=== PATIENT | female | born 1995 | race Caucasian/White ===

== ENCOUNTER → 2016-05-30 | Outpatient (CLI) | payer BC ==
[2016-05-30 18:03] LABS: CH 29.3; CHCM 33.1; HCT 38.5 % (34.0-46.0); HGB 12.7 gm/dL (11.4-16.0); MCH 29.3 pg (25.0-35.0); MCHC 33.1 g/dL (31.0-37.0); MCV 88.6 fL (80.0-100.0); Mean Platelet Volume 6.4; RBC 4.34 m/uL (3.80-5.40); WBC 6.5 k/uL (3.8-10.6)
== END | disposition home or self-care (01) ==
LOC: LABWHC1 17:01
PROVIDERS: ATTEND Obstetrics & Gynecology
DX: O20.9 Hemorrhage in early pregnancy, unspecified (principal); Z3A.00 Weeks of gestation of pregnancy not specified
CPT/HCPCS: 36415; 84702; 85027; 86850; 86900; 86901

== ENCOUNTER → 2016-07-11 | Outpatient (CLI) | payer BC ==
[2016-07-12 07:10] LABS: Cardiolipin Ab IgG <9.0 GPL (<15); Cardiolipin Ab IgM 21.7 MPL (<12.5)
[2016-07-12 15:20] LABS: Prothrombin 20210 G/A Mutation Normal Genotype
== END | disposition home or self-care (01) ==
LOC: LABWHC1 10:00
PROVIDERS: ATTEND Obstetrics & Gynecology
DX: N96 Recurrent pregnancy loss (principal)
CPT/HCPCS: 36415; 81240; 81241; 81291; 84144; 84439; 84443; 86147

== ENCOUNTER → 2017-01-07 | Outpatient (CLI) | payer BC ==
[2017-01-07 11:18] LABS: CH 30.1; CHCM 34.1; HDW 2.24; HGB 13.9 gm/dL (11.4-16.0); MCH 29.2 pg (25.0-35.0); MCV 88.5 fL (80.0-100.0); Mean Platelet Volume 7.4; RBC 4.75 m/uL (3.80-5.40); RDW 13.1 % (11.5-15.5); WBC 12.7 k/uL (3.8-10.6)
[2017-01-07 11:31] LABS: Glucose 79 mg/dL (74-99); Non-African American GFR(MDRD) >60 (>60 ml/min/1.73 sqM)
[2017-01-07 12:04] LABS: Hepatitis B Surface Ag Index 0.07
[2017-01-07 15:44] LABS: Treponemal Ab Non-Reactive (Non-Reactive)
== END | disposition home or self-care (01) ==
LOC: LABWHC1 10:58
PROVIDERS: ATTEND Obstetrics & Gynecology
DX: Z34.81 Encounter for supervision of other normal pregnancy, first trimester (principal); R53.83 Other fatigue
CPT/HCPCS: 36415; 82565; 82947; 84702; 85027; 86762; 86780; 86850; 86900; 86901; 87340; 87390

== ENCOUNTER → 2017-05-12 | Outpatient (CLI) | payer BC ==
[2017-05-12 10:05] LABS: CH 29.4; CHCM 32.6; HCT 32.6 % (34.0-46.0); HDW 2.59; HGB 10.7 gm/dL (11.4-16.0); MCH 29.9 pg (25.0-35.0); MCHC 32.9 g/dL (31.0-37.0); MCV 90.9 fL (80.0-100.0); Mean Platelet Volume 7.1; RBC 3.59 m/uL (3.80-5.40); RDW 13.5 % (11.5-15.5); WBC 11.3 k/uL (3.8-10.6)
== END | disposition home or self-care (01) ==
LOC: LABWHC1 08:46
PROVIDERS: ATTEND Obstetrics & Gynecology
DX: Z34.82 Encounter for supervision of other normal pregnancy, second trimester (principal); Z3A.00 Weeks of gestation of pregnancy not specified
CPT/HCPCS: 36415; 82950; 85027

== ENCOUNTER 2019-05-27 18:56 | Outpatient (CLI) | payer BC ==
[2019-05-27] MEDS: LACTATED RINGERS 1,000 ML IV SCH ×2 (20:29→20:50)
[2019-05-27 20:53] LABS: Appearance,Urine Clear (Clear); Bacteria,Urine Occasional /hpf; Bilirubin,Urine Negative (Negative); Blood,Urine Negative (Negative); Color,Urine Yellow; Glucose,Urine (UA) Negative (Negative); Ketones,Urine 4+ (Negative); Leukocyte Esterase,Urine Negative (Negative); Mucus,Urine Rare /hpf; Nitrite,Urine Negative (Negative); Protein,Urine 1+ (Negative); RBC,Urine <1 /hpf (0-5); Specific Gravity,Urine 1.022 (1.001-1.035); Squamous Epithelial Cell,Urine 1 /hpf (0-4); Urobilinogen,Urine <2.0 mg/dL (<2.0); WBC,Urine 1 /hpf (0-5)
[2019-05-27 23:01] VITALS: BP 116/67; PULSE 120; RESP 18; TEMP 98.6
[2019-05-28] MEDS ORDERED: PRENATAL VIT-IRON-FOLIC ACID 1 EACH CAP PO SCH (09:00)
--- NOTE | 2019-06-02 08:34 | P.MSEPDOC ---
Presenting Problems - Arrival Data Date of Arrival on Unit: 05/27/19 Time of Arrival on Unit: 18:56 Mode of Transport: Ambulatory - Complaint OB-Reason for Admission/Chief Complaint: Other Medical History - Information : 4 Para: 1 Term: 1 : 0 Abortions: Spontaneous or Elective: 2 Number of Living Children: 1 - Gestational Age Gestational Age by SURI (wks/days): 34 Weeks and 3 Days Review of Systems - Review of Systems Constitutional: No problems Breast: No problems ENT: No problems Cardiovascular: No problems Respiratory: No problems Gastrointestinal: No problems Genitourinary: No problems Musculoskeletal: No problems Neurological: No problems Skin: No problems Vital Signs - Temperature Temperature: 98.6 F Temperature Source: Temporal Artery Scan - Pulse Right Supine Pulse Rate: 120 Pulse Assessment Method: Automatic Cuff - Respirations Respiratory Rate: 18 Oxygen Delivery Method: Room Air O2 Sat by Pulse Oximetry: 98 - Blood Pressure Right Arm Blood Pressure: 116/67 Blood Pressure Mean: 83 Blood Pressure Source: Automatic Cuff Medical Screen Scoring (Pre) - Cervical Exam Dilation: 0 cm = 0 Membranes: Intact - Uterine Contractions Frequency: < 36 weeks = 6 Duration: > 40 seconds = 2 Intensity: N/A - Maternal Vital Signs Maternal Temperature: N/A Maternal Blood Pressure: N/A Signs of Preeclampsia: N/A Maternal Respirations: N/A - Maternal Trauma Maternal Trauma: N/A - Assessment - Baby A Baseline FHR: 150 Heart Rate - NICHD Category: Category I (Normal) = 0 NST: Reactive Position: N/A Station: N/A - Total Score - Baby A Total Score - Baby A: 8 - Total Score - Baby B Total Score - Baby B: 8 - Total Score - Baby C Total Score - Baby C: 8 - Level of Risk - Baby A Level of Risk - Baby A: Medium (6-9) - Level of Risk - Baby B Level of Risk - Baby B: N/A - Level of Risk - Baby C Level of Risk - Baby C: N/A Physician Notification (Pre) - Physician Notified Physician Notified Date: 05/27/19 Physician Notified Time: 20:30 New Order Received: Yes - Notification Comment Comment: Pt to be discharged and see Dr Kenny on Friday, if no cervical change, negative FfN and contractions space with IV hydration. Disposition - Disposition OB Disposition: Discharge to home Discharge Date: 05/27/19 Discharge Time: 22:45 I agree with the RN Medical Screening Exam: Yes Risk & Benefit of care provided described in d/c instruction: Yes Diagnosis: VOMITING OF , UNSPECIFIED
== END 2019-05-27 22:45 | disposition home or self-care (01) ==
LOC: FBPOP 18:56
PROVIDERS: ATTEND Obstetrics & Gynecology
DX: O21.2 Late vomiting of pregnancy (principal); Z3A.34 34 weeks gestation of pregnancy
CPT/HCPCS: 59025; 81001; 82731; 96360; 96361; 99214

== ENCOUNTER 2019-06-29 05:42 | Inpatient (IN) | payer BC ==
[2019-06-29] MEDS ORDERED: LIDOCAINE 0.5% (PF) 5 MG/ML (50 ML SDV) SQ PRN (05:51)
[2019-06-29] MEDS ORDERED: OXYTOCIN 10 UNIT/ML 1 ML VIAL IM PRN (05:51)
[2019-06-29] MEDS ORDERED: OXYTOCIN 30 UNITS/500 ML NS 30 UNIT in SALINE 1 500ML.BAG IV SCH (05:51)
[2019-06-29] MEDS ORDERED: CARBOPROST TROMETHAMINE 250 MCG/ML 1 ML AMP IM PRN (05:51)
[2019-06-29] MEDS ORDERED: METHYLERGONOVINE 0.2 MG/ML 1 ML AMP IM PRN (05:51)
[2019-06-29] MEDS ORDERED: TERBUTALINE 1 MG/ML VIAL SQ PRN (05:51)
[2019-06-29] MEDS: LACTATED RINGERS 1,000 ML IV SCH ×2 (06:12→09:23)
--- NOTE | 2019-06-29 06:16 | P.HPOB ---
History of Present Illness H&P Date: 06/29/19 Chief Complaint: Induction secondary to antiphospholipid syndrome This patient is a pleasant 24-year-old 4 para 1 female estimated date of confinement 07/05/2019 estimated gestational age 39 and one sevenths weeks gestation who is admitted to labor and delivery for induction of labor secondary to antiphospholipid syndrome. Patient has been on Lovenox and baby aspirin throughout the secondary to this condition and has had normal testing. Patient now presents for delivery. care has otherwise been uncomplicated. Review of Systems Genitourinary: Reports Menstruation: Reports amenorrhea Past Medical History Additional Past Medical History / Comment(s): Antiphospolipid syndrone; normal vaginal delivery baby boy in 2018 7 lbs. 10 oz. History of Any Multi-Drug Resistant Organisms: None Reported Past Surgical History: No Surgical Hx Reported Past Anesthesia/Blood Transfusion Reactions: No Reported Reaction Past Psychological History: No Psychological Hx Reported Smoking Status: Never smoker Past Alcohol Use History: None Reported Past Drug Use History: None Reported - Past Family History Mother Family Medical History: No Reported History Medications and Allergies Home Medications Medication Instructions Recorded Confirmed Type Pnv,Calcium 72/Iron/Folic Acid 1 tab PO DAILY 03/26/16 06/29/19 History [ Plus Tablet] Allergies Allergy/AdvReac Type Severity Reaction Status Date / Time No Known Allergies Allergy Verified 06/29/19 05:51 Exam Vital Signs Temp Pulse Resp BP Pulse Ox 06/29/19 05:53 97.8 F 91 18 131/73 98 Intake and Output 06/28/19 06/28/19 06/29/19 14:59 22:59 06:59 Other: Weight 68.039 kg - OBG Physical Exam Abdomen: bowel sounds normal, no diffuse tenderness, no bruit present, no guarding noted, no hepatomegaly, no splenomegaly, no mass Vulva: both: normal Vagina: normal moisture, no discharge Cervix: no lesion (Cervix is 4 cm dilated 50% effaced -2 station.), no discharge Uterus: enlarged (Fundal heights 39 cm) Results blood work shows she is O positive, rubella immune, RPR nonreactive, hepatitis B negative, HIV is nonreactive, Glucola was normal, group B strep was negative, growth ultrasounds have been normal. Most recent ultrasound was on May 31 which showed estimated weight of 5 lbs. 14 oz. Assessment and Plan Assessment: This is a pleasant 24-year-old 4 para 1 female 39 and one sevenths weeks gestation admitted to labor and delivery who presents for delivery secondary to antiphospholipid syndrome. Patient's been on Lovenox and baby aspirin which she discontinued 48 hours ago so therefore we'll check coags. Plan is induction of labor and anticipate vaginal delivery. (1) 39 weeks gestation of Current Visit: Yes Status: Acute Code(s): Z3A.39 - 39 WEEKS GESTATION OF SNOMED Code(s): 61025452 (2) Antiphospholipid antibody syndrome Current Visit: No Status: Acute Code(s): D68.61 - ANTIPHOSPHOLIPID SYNDROME SNOMED Code(s): 40167081
[2019-06-29 06:31] LABS: Basophils # (A) 0.1 k/uL (0-0.2); Basophils % (A) 1 %; Eosinophils # (A) 0.1 k/uL (0-0.7); Eosinophils % (A) 1 %; HCT 35.2 % (34.0-46.0); HGB 11.5 gm/dL (11.4-16.0); Lymphocytes # (A) 1.3 k/uL (1.0-4.8); Lymphocytes % (A) 12 %; MCH 28.5 pg (25.0-35.0); MCHC 32.7 g/dL (31.0-37.0); Mean Platelet Volume 8.1; Monocytes # (A) 0.5 k/uL (0-1.0); Monocytes % (A) 5 %; Neutrophils # (A) 8.8 k/uL (1.3-7.7); Neutrophils % (A) 81 %; Platelet Count 205 k/uL (150-450); RBC 4.05 m/uL (3.80-5.40); RDW 13.9 % (11.5-15.5); WBC 10.9 k/uL (3.8-10.6)
[2019-06-29 06:45] LABS: INR 0.9 (<1.2); Partial Thromboplastin Time 22.7 sec (22.0-30.0); Prothrombin Time 9.5 sec (9.0-12.0)
[2019-06-29] MEDS ORDERED: fentaNYL (PF) 50 MCG/ML 5 ML AMP ONE (09:03)
[2019-06-29] MEDS ORDERED: SODIUM CHLORIDE 0.9% 100 ML BAG ONE (09:03)
[2019-06-29] MEDS ORDERED: ROPIVACAINE 5MG/ML 20ML VIAL ONE (09:03)
[2019-06-29] MEDS ORDERED: WITCH HAZEL 1 EACH MED..PAD TOPICAL PRN (12:08)
[2019-06-29] MEDS ORDERED: ACETAMINOPHEN TAB 325 MG TAB PO PRN (12:08)
[2019-06-29] MEDS ORDERED: ZOLPIDEM 5 MG TAB PO PRN (12:08)
[2019-06-29] MEDS ORDERED: OXYTOCIN 20 UNITS/1000 ML NS 1,000 ML IV SCH (12:08)
[2019-06-29] MEDS ORDERED: LANOLIN CREAM 5 GM TUBE TOPICAL PRN (12:08)
[2019-06-29] MEDS ORDERED: BENZOCAINE/MENTHOL SPRAY 1 GM/SPRAY AEROSOL TOPICAL PRN (12:08)
[2019-06-29] MEDS ORDERED: BISACODYL 10 MG SUPP RECTAL PRN (12:08)
[2019-06-29] MEDS ORDERED: diphenhydrAMINE 25 MG CAP PO PRN (12:08)
[2019-06-29] MEDS ORDERED: SIMETHICONE 80 MG CHEWABLE PO PRN (12:08)
[2019-06-29] MEDS ORDERED: HYDROCORTISONE 2.5% RECTAL CREAM 30 GM TUBE RECTAL PRN (12:08)
[2019-06-29] MEDS ORDERED: diphenhydrAMINE 50 MG/ML 1 ML VIAL IVP PRN (12:08)
[2019-06-29] MEDS: SENNOSIDES-DOCUSATE SODIUM 1 EACH TAB PO SCH ×2 (12:18→19:46)
[2019-06-29] MEDS: IBUPROFEN 600 MG TAB PO PRN ×2 (12:23→18:39)
--- NOTE | 2019-06-29 18:03 | P.PROBDLV ---
Vaginal Delivery Note - . Vaginal Delivery Note: Normal vaginal delivery viable male infant Apgars 8 and 9 delivery time was 1152 hrs. Please see the dictated H&P for intimate details of this patient's admission. Brief summary this is a pleasant 24-year-old 4 para 1 female 39 and one sevenths weeks gestation is admitted to labor and delivery for induction of labor secondary to antiphospholipid syndrome. Admission patient's 4 cm dilated has artificial rupture membranes for clear fluid. Labor is induced with Pitocin per protocol. Patient's labor progresses and she does get an epidural for pain control. Patient gets to complete pushes the head to the perineum. Posterior perineum was supported we have controlled delivery of infant's head over the intact perineum. Mouth and nares are bulb suctioned. There is a loose nuchal cord which is reduced. Gentle downward traction we then deliver the anterior posterior shoulder and rest this 's body. This is a vigorous viable male infant Apgars are 8 and 9 delivery time was 1152 hrs. After delivery of the infant is late the mother's abdomen. The cord was done pulsating is then doubly clamped and cut. It appears to be trivascular. Placenta spontaneously delivered intact. Inspection of perineum shows second- degree midline laceration is repaired with 3-0 Vicryl usual fashion. Good reapproximation is noted. All counts are correct 3. There are no complications. Estimated blood loss is approximately 200 mL.
[2019-06-29 23:43] VITALS: RESP 15
[2019-06-30] MEDS: IBUPROFEN 600 MG TAB PO PRN ×2 (05:09→10:54)
--- NOTE | 2019-06-30 06:34 | P.PNOBGVD ---
Subjective - Subjective Patient reports: Reports appetite normal, Reports voiding normally, Reports pain well controlled, Reports ambulating normally : doing well Objective - Latest Vital Signs Latest vital signs: Vital Signs Temp Pulse Resp BP Pulse Ox 06/29/19 23:41 98.3 F 86 15 118/68 98 06/29/19 20:00 98.5 F 92 16 116/71 98 06/29/19 15:47 99 F 90 16 132/65 06/29/19 14:10 92 16 120/70 06/29/19 13:40 92 16 120/70 06/29/19 13:10 98 16 122/67 06/29/19 12:55 102 H 16 112/67 06/29/19 12:40 96 16 123/68 06/29/19 12:25 100 16 124/62 06/29/19 12:10 37.2 F L 111 H 16 124/76 Intake and Output 06/29/19 06/29/19 06/30/19 14:59 22:59 06:59 Other: # Voids 1 2 - Exam Lungs: bilateral: normal Chest: Normal S1, Normal S2 Extremities: Present: normal Abdomen: Present: normal appearance, soft Uterus: Present: normal, firm Assessment and Plan Assessment: day #1. Patient is resting without complaints wishes to go home. Vital signs are stable and she is afebrile. Uterus is firm nontender she's having normal lochia. My impression is a normal course. Plan is to continue routine care discharge home later today. (1) 39 weeks gestation of Current Visit: Yes Status: Acute Code(s): Z3A.39 - 39 WEEKS GESTATION OF SNOMED Code(s): 21711366 (2) Antiphospholipid antibody syndrome Current Visit: No Status: Acute Code(s): D68.61 - ANTIPHOSPHOLIPID SYNDROME SNOMED Code(s): 41001344
--- NOTE | 2019-06-30 06:39 | P.DS ---
Providers Date of admission: 06/29/19 05:42 Expected date of discharge: 06/30/19 Attending physician: Will Kenny Primary care physician: Stated None - Discharge Diagnosis(es) (1) 39 weeks gestation of Current Visit: Yes Status: Acute (2) Antiphospholipid antibody syndrome Current Visit: No Status: Acute Hospital Course: Please see dictated H&P for intimate details of this patient's admission. Brief summary this pleasant 24-year-old 4 para 1 female 39 and one sevenths weeks gestation admitted to labor and delivery for induction of labor secondary to known antiphospholipid syndrome. Patient is admitted and quickly goes on have a vaginal delivery viable male infant. Please see dictated delivery note. day #1 patient is doing well wishes to go home. Patient's felt be stable for discharge home with follow-up with me in 6 weeks. I am going to have her continue baby aspirin until that time. Procedures: Induction of labor and normal vaginal delivery Patient Condition at Discharge: Good Plan - Discharge Summary New Discharge Prescriptions: New Ibuprofen [Motrin] 600 mg PO Q6HR PRN #30 tab PRN Reason: Mild Pain Or Fever >= 100.5 No Action Pnv,Calcium 72/Iron/Folic Acid [ Plus Tablet] 1 tab PO DAILY Discharge Medication List Pnv,Calcium 72/Iron/Folic Acid [ Plus Tablet] 1 tab PO DAILY 03/26/16 [History] Ibuprofen [Motrin] 600 mg PO Q6HR PRN #30 tab 06/30/19 [Rx] Follow up Appointment(s)/Referral(s): Will Kenny MD [STAFF PHYSICIAN] - 08/11/19 10:30 am Patient Instructions/Handouts: Vaginal Delivery (DC) Activity/Diet/Wound Care/Special Instructions: No intercourse or anything per vagina for 6 weeks. Please call if any fever, chills, excessive vaginal bleeding, and/or abdominal pain. Discharge Disposition: HOME SELF-CARE
[2019-06-30 08:12] VITALS: BP 122/68; PULSE 98; TEMP 98.4
[2019-06-30] MEDS: SENNOSIDES-DOCUSATE SODIUM 1 EACH TAB PO SCH (08:52)
== END 2019-06-30 12:31 | disposition home or self-care (01) | DRG 806 ==
LOC: 4FBP 05:42
PROVIDERS: ADMIT Obstetrics & Gynecology; ATTEND Obstetrics & Gynecology
PROC: 0KQM0ZZ Repair Perineum Muscle, Open Approach (ICD-10-PCS; principal; 2019-06-29)
PROC: 10E0XZZ Delivery of Products of Conception, External Approach (ICD-10-PCS; principal; 2019-06-29)
PROC: 3E0R3NZ Introduction of Analgesics, Hypnotics, Sedatives into Spinal Canal, Percutaneous Approach (ICD-10-PCS; principal; 2019-06-29)
PROC: 10907ZC Drainage of Amniotic Fluid, Therapeutic from Products of Conception, Via Natural or Artificial Opening (ICD-10-PCS; principal; 2019-06-29)
PROC: 00HU33Z Insertion of Infusion Device into Spinal Canal, Percutaneous Approach (ICD-10-PCS; principal; 2019-06-29)
PROC: 3E033VJ Introduction of Other Hormone into Peripheral Vein, Percutaneous Approach (ICD-10-PCS; principal; 2019-06-29)
DX: O99.12 Other diseases of the blood and blood-forming organs and certain disorders involving the immune mechanism complicating childbirth (principal); D68.61 Antiphospholipid syndrome; Z37.0 Single live birth; O69.81X0 Labor and delivery complicated by cord around neck, without compression, not applicable or unspecified; Z3A.39 39 weeks gestation of pregnancy; O70.1 Second degree perineal laceration during delivery; Z79.01 Long term (current) use of anticoagulants
CPT/HCPCS: 85025; 85610; 85730; 86850; 86900; 86901; 88307

== ENCOUNTER 2022-02-17 00:04 | Outpatient (CLI) | payer BC ==
[2022-02-17 01:22] VITALS: BP 129/76; PULSE 102; RESP 16; TEMP 97
--- NOTE | 2022-02-17 04:56 | P.MSEPDOC ---
Presenting Problems - Arrival Data Date of Arrival on Unit: 02/17/22 Time of Arrival on Unit: 00:04 Mode of Transport: Ambulatory - Complaint OB-Reason for Admission/Chief Complaint: Possible Onset of Labor Comment: cx 3mins apart Medical History - Information : 5 Para: 2 Term: 2 : 0 Abortions: Spontaneous or Elective: 2 Number of Living Children: 2 - Gestational Age Gestational Age by SURI (wks/days): 36 Weeks and 3 Days - History Complications: Other Comment: Antiphospholipid Syndrome Review of Systems - Review of Systems Constitutional: No problems Breast: No problems ENT: No problems Cardiovascular: No problems Respiratory: No problems Gastrointestinal: No problems Genitourinary: No problems Musculoskeletal: No problems Neurological: No problems Skin: No problems Vital Signs - Temperature Temperature: 97.0 F Temperature Source: Temporal Artery Scan - Pulse Pulse Oximetery Pulse Rate: 102 Pulse Assessment Method: Pulse Oximetry - Respirations Respiratory Rate: 16 Oxygen Delivery Method: Room Air O2 Sat by Pulse Oximetry: 98 - Blood Pressure Right Arm Blood Pressure: 129/76 Blood Pressure Mean: 93 Blood Pressure Source: Automatic Cuff Medical Screen Scoring - Cervical Exam Dilation (cm): 1.5 Effacement (%): 50 Station: -3 Membranes: Intact - Uterine Contractions Frequency From (mins): 3 Frequency To (mins): 4 Duration From (seconds): 60 Duration To (seconds): 70 Intensity: Mild Resting: Soft to palpation - Assessment - Baby A Baseline FHR: 120 Heart Rate - NICHD Category: Category I (Normal) NST: Reactive Physician Notification - Physician Notified Physician Notified Date: 02/17/22 Physician Notified Time: 01:13 Physician: Will Kenny New Order Received: Yes - Notification Comment Comment: Dr. Kenny returning page, report given on maternal and condition, c/o. contractions since 8pm, pt does not appear uncomfortable with them but is irena. every 3-4mins, NST is reactive and fetus is very active, SVE 1.5/50/high (no change in 1. hr). Orders to discharge home Maternal Triage Index - Maternal Triage Index Presenting for scheduled procedure w/no complaint: No - Stat/Priority 1 Stat Priority 1: No - Urgent/Priority 2 Urgent Priority 2: No - Prompt/Priority 3 Prompt Priority 3: Yes Criteria Met for Priority 3: 36 6/7wks, cx every 3mins, does not appear uncomfortable Disposition - Disposition OB Disposition: Discharge to home Discharge Date: 02/17/22 Discharge Time: 01:20 I agree with the RN Medical Screening Exam: Yes Case reviewed; plan agreed upon as documented in EMR&OBIX.: Yes Diagnosis: FALSE LABOR BEFORE 37 COMPLETED WEEKS OF GEST, THIRD TRI
== END 2022-02-17 01:20 | disposition home or self-care (01) ==
LOC: FBPOP 00:04
PROVIDERS: ATTEND Obstetrics & Gynecology
DX: O47.03 False labor before 37 completed weeks of gestation, third trimester (principal); Z3A.36 36 weeks gestation of pregnancy
CPT/HCPCS: 59025; 99213

== ENCOUNTER 2022-03-08 05:56 | Inpatient (IN) | payer BC ==
--- NOTE | 2022-03-07 06:53 | P.HPOB ---
History of Present Illness H&P Date: 03/07/22 Chief Complaint: antiphospholipid syndrome, for induction of labor This patient is a pleasant 27-year-old 5 para 2 female estimated date of confinement 03/14/2002 estimated gestational age 39 and one sevenths weeks who presents to labor and delivery for induction of labor secondary to antiphospholipid syndrome. Patient's history is such that she had multiple miscarriages was found to have antiphospholipid syndrome. She subsequently been on Lovenox and heparin for her subsequent 2 pregnancies and has been on at this as well. Patient's had normal testing and growth. She did see maternal medicine for a questionable circumvallate placenta which she did not have. Patient most recently stopped her heparin about 48 hours ago now presents for delivery. care is otherwise been uncomplicated. Review of Systems Genitourinary: Reports Menstruation: Reports amenorrhea Past Medical History Past Medical History: No Reported History Additional Past Medical History / Comment(s): .Antiphospolipid syndrone; normal vaginal delivery History of Any Multi-Drug Resistant Organisms: None Reported Past Surgical History: No Surgical Hx Reported Past Anesthesia/Blood Transfusion Reactions: No Reported Reaction Additional Past Anesthesia/Blood Transfusion Reaction / Comment(s): hands numb for 6 weeks after 1st epidural (unknown cause) Past Psychological History: No Psychological Hx Reported Past Alcohol Use History: None Reported Past Drug Use History: None Reported - Past Family History Mother Family Medical History: No Reported History Medications and Allergies Home Medications Medication Instructions Recorded Confirmed Type Pnv,Calcium 72/Iron/Folic Acid 1 tab PO DAILY 03/26/16 02/17/22 History [ Plus Tablet] Aspirin [Adult Low Dose Aspirin EC] 1 tab PO DAILY 02/17/22 03/07/22 History Allergies Allergy/AdvReac Type Severity Reaction Status Date / Time No Known Allergies Allergy Verified 06/29/19 05:51 Exam - OBG Physical Exam Abdomen: bowel sounds normal, no diffuse tenderness, no bruit present, no guarding noted, no hepatomegaly, no splenomegaly, no mass Vulva: both: normal Vagina: normal moisture, no discharge Uterus: normal size (cervix in the office was 3 cm dilated and thick and -2 station.), normal contour Results blood work shows she is O positive, rubella immune, RPR nonreactive, HIV is nonreactive, hepatitis B is negative, group B strep was negative, Glucola was normal, most recent ultrasound showed normal growth. Assessment and Plan Assessment: this is a pleasant 27-year-old 5 para 2 female 39 and one sevenths weeks gestation who is admitted to labor and delivery for induction of labor secondary to antiphospholipid syndrome. Plan is to check coagulation factors, induction of labor per Pitocin protocol, and anticipate vaginal delivery. (1) 39 weeks gestation of Status: Acute Code(s): Z3A.39 - 39 WEEKS GESTATION OF SNOMED Code(s): 77147249 (2) Antiphospholipid antibody syndrome Status: Acute Code(s): D68.61 - ANTIPHOSPHOLIPID SYNDROME SNOMED Code(s): 65025246
[2022-03-08] MEDS ORDERED: CARBOPROST TROMETHAMINE 250 MCG/ML 1 ML AMP IM PRN (06:02)
[2022-03-08] MEDS ORDERED: OXYTOCIN 30 UNITS/500 ML NS 30 UNIT in SALINE 1 500ML.BAG IV SCH ×2 (06:02→11:38)
[2022-03-08] MEDS ORDERED: METHYLERGONOVINE 0.2 MG/ML 1 ML AMP IM PRN (06:02)
[2022-03-08] MEDS ORDERED: TERBUTALINE 1 MG/ML VIAL SQ PRN (06:02)
[2022-03-08] MEDS ORDERED: OXYTOCIN 10 UNIT/ML 1 ML VIAL IM PRN (06:02)
[2022-03-08] MEDS ORDERED: LIDOCAINE 0.5% (PF) 5 MG/ML (50 ML SDV) SQ PRN (06:02)
[2022-03-08] MEDS: LACTATED RINGERS 1,000 ML IV SCH ×2 (06:15→08:40)
[2022-03-08 07:26] LABS: Basophils # (A) 0.1 k/uL (0-0.2); Basophils % (A) 0 %; Eosinophils # (A) 0.2 k/uL (0-0.7); Eosinophils % (A) 1 %; HCT 35.3 % (34.0-46.0); HGB 12.2 gm/dL (11.4-16.0); Lymphocytes # (A) 1.3 k/uL (1.0-4.8); Lymphocytes % (A) 9 %; MCH 30.1 pg (25.0-35.0); MCHC 34.5 g/dL (31.0-37.0); MCV 87.2 fL (80.0-100.0); Mean Platelet Volume 8.4; Monocytes # (A) 0.9 k/uL (0-1.0); Monocytes % (A) 6 %; Neutrophils # (A) 12.1 k/uL (1.3-7.7); Neutrophils % (A) 82 %; Platelet Count 198 k/uL (150-450); RBC 4.05 m/uL (3.80-5.40); RDW 13.3 % (11.5-15.5); WBC 14.7 k/uL (3.8-10.6)
[2022-03-08 08:07] LABS: INR 0.9 (<1.2); Partial Thromboplastin Time 23.1 sec (22.0-30.0); Prothrombin Time 9.6 sec (9.0-12.0)
[2022-03-08] MEDS ORDERED: ROPIVACAINE 5 MG/ML 20 ML AMPULE ONE (08:47)
[2022-03-08] MEDS ORDERED: SODIUM CHLORIDE 0.9% 100 ML BAG ONE (08:47)
[2022-03-08] MEDS ORDERED: fentaNYL (PF) 50 MCG/ML 5 ML AMP ONE (08:47)
[2022-03-08] MEDS ORDERED: ROPIVACAINE 100 MG, fentaNYL (PF). 200 MCG in SODIUM CHLORIDE 0.9% 76 ML EPIDURAL ONE (09:43)
[2022-03-08] MEDS ORDERED: HYDROCORTISONE 2.5% RECTAL CREAM 30 GM TUBE RECTAL PRN (11:38)
[2022-03-08] MEDS ORDERED: LANOLIN CREAM 5 GM TUBE TOPICAL PRN (11:38)
[2022-03-08] MEDS ORDERED: SIMETHICONE 80 MG CHEWABLE PO PRN (11:38)
[2022-03-08] MEDS ORDERED: bisacodyL 10 MG SUPP RECTAL PRN (11:38)
[2022-03-08] MEDS ORDERED: BENZOCAINE/MENTHOL SPRAY 1 GM/SPRAY AEROSOL TOPICAL PRN (11:38)
[2022-03-08] MEDS ORDERED: ACETAMINOPHEN TAB 325 MG TAB PO PRN (11:38)
[2022-03-08] MEDS ORDERED: diphenhydrAMINE 50 MG/ML 1 ML VIAL IVP PRN (11:38)
[2022-03-08] MEDS ORDERED: ZOLPIDEM 5 MG TAB PO PRN (11:38)
[2022-03-08] MEDS ORDERED: diphenhydrAMINE 25 MG CAP PO PRN (11:38)
[2022-03-08] MEDS: SENNOSIDES-DOCUSATE SODIUM 1 EACH TAB PO SCH ×2 (11:50→20:32)
--- NOTE | 2022-03-08 12:40 | P.PROBDLV ---
Vaginal Delivery Note - . Vaginal Delivery Note: Normal vaginal delivery viable male Apgars 9 and 10 delivery time is 1125 hrs. Please see dictated H&P for intimate details of this patient's admission. In brief summary this pleasant 27-year-old 5 para 2 female estimated gestational age 39 and one sevenths weeks who presents to labor and delivery for induction of labor secondary to antiphospholipid syndrome. Patient is admitted she is 3 cm dilated. She is artificial rupture membranes for clear fluid. Labor is induced with Pitocin per protocol. Labor progresses and approximately 7 simmers dilated she gets an epidural for pain control. Patient quickly thereafter gets to complete pushes the head to the perineum. Posterior perineum is supported we have controlled delivery of the infant's head over the intact perineum. There was a loose nuchal cord which is reduced. I bulb suction the mouth and nose. With gentle downward traction we then have deliver the anterior and posterior shoulder and rest this 's body. This is a vigorous viable male infant Apgars are 9 and 10 delivery time was 1125 hrs. After delivery of the infant, the is laid on the mother's abdomen. After the umbilical cord is done pulsating is doubly clamped and then cut. It appears to be trivascular. The placenta is then spontaneously delivered intact. Inspection of perineum shows no lacerations and no repairs required. Infant and mother are stable delivery room. All counts correct 3. There are no complications.
[2022-03-08 13:16] VITALS: RESP 16
[2022-03-08] MEDS: IBUPROFEN 600 MG TAB PO PRN (14:26)
[2022-03-09] MEDS: IBUPROFEN 600 MG TAB PO PRN ×2 (00:24→08:16)
[2022-03-09 08:10] VITALS: BP 100/66; PULSE 67; TEMP 98.1
[2022-03-09] MEDS: SENNOSIDES-DOCUSATE SODIUM 1 EACH TAB PO SCH (08:15)
[2022-03-09 08:17] LABS: Basophils # (A) 0.1 k/uL (0-0.2); Basophils % (A) 0 %; Eosinophils # (A) 0.2 k/uL (0-0.7); Eosinophils % (A) 2 %; HCT 32.2 % (34.0-46.0); HGB 10.9 gm/dL (11.4-16.0); Lymphocytes # (A) 1.4 k/uL (1.0-4.8); Lymphocytes % (A) 12 %; MCH 30.1 pg (25.0-35.0); MCHC 33.9 g/dL (31.0-37.0); MCV 88.8 fL (80.0-100.0); Mean Platelet Volume 8.1; Monocytes # (A) 0.7 k/uL (0-1.0); Monocytes % (A) 6 %; Neutrophils # (A) 9.1 k/uL (1.3-7.7); Neutrophils % (A) 79 %; Platelet Count 175 k/uL (150-450); RBC 3.63 m/uL (3.80-5.40); RDW 13.6 % (11.5-15.5); WBC 11.5 k/uL (3.8-10.6)
--- NOTE | 2022-03-09 08:24 | P.PNOBGVD ---
Subjective - Subjective Patient reports: Reports appetite normal, Reports voiding normally, Reports pain well controlled, Reports ambulating normally [place]: doing well Objective - Latest Vital Signs Latest vital signs: Vital Signs Temp Pulse Resp BP Pulse Ox 03/09/22 08:00 98.1 F 67 16 100/66 03/09/22 00:00 97.7 F 79 16 114/74 99 03/08/22 20:00 97.9 F 82 16 118/71 98 03/08/22 15:34 98.1 F 82 16 107/65 98 03/08/22 13:40 100 16 113/63 03/08/22 13:14 97.2 F L 91 16 108/61 03/08/22 12:39 97.1 F L 97 18 113/65 03/08/22 12:24 98 18 109/62 03/08/22 12:09 90 18 114/63 03/08/22 11:54 88 16 110/61 03/08/22 11:39 97.9 F 99 16 113/63 Intake and Output 03/08/22 03/09/22 03/09/22 22:59 06:59 14:59 Other: # Voids 1 2 1 - Exam Lungs: bilateral: normal Chest: Normal S1, Normal S2 Extremities: Present: normal Abdomen: Present: normal appearance, soft Uterus: Present: normal, firm - Labs Labs: Abnormal Lab Results - Last 24 Hours (Table) 03/09/22 Range/Units 07:57 WBC 11.5 H (3.8-10.6) k/uL RBC 3.63 L (3.80-5.40) m/uL Hgb 10.9 L (11.4-16.0) gm/dL Hct 32.2 L (34.0-46.0) % Neutrophils # 9.1 H (1.3-7.7) k/uL Assessment and Plan Assessment: day #1. Patient is resting without complaints and wishes to go home. Vital signs are stable she is afebrile. Uterus is firm nontender and she is having normal lochia. I impression this is a normal course. Plan is to continue routine care discharge home later today. (1) 39 weeks gestation of Current Visit: No Status: Acute Code(s): Z3A.39 - 39 WEEKS GESTATION OF SNOMED Code(s): 23499818 (2) Antiphospholipid antibody syndrome Current Visit: No Status: Acute Code(s): D68.61 - ANTIPHOSPHOLIPID SYNDROME SNOMED Code(s): 39041400
--- NOTE | 2022-03-09 08:32 | P.DS ---
Providers Date of admission: 03/08/22 05:56 Expected date of discharge: 03/09/22 Attending physician: Will Kenny Primary care physician: Stated None - Discharge Diagnosis(es) (1) 39 weeks gestation of Current Visit: No Status: Acute (2) Antiphospholipid antibody syndrome Current Visit: No Status: Acute Hospital Course: Please see dictated H&P for intimate details of this patient's admission. Brief summary is a pleasant 27-year-old 5 para 2 female 39 and one sevenths weeks gestation admitted to labor and delivery or induction of labor secondary to antiphospholipid syndrome. Patient is admitted has uncomplicated induction of labor quickly goes on have a vaginal delivery viable male infant. Please see dictated delivery note. day #1 patient's felt to be stable for discharge home follow up with me in 6 weeks. Procedures: Induction of labor and normal vaginal delivery Patient Condition at Discharge: Good Plan - Discharge Summary New Discharge Prescriptions: New Ibuprofen [Motrin] 600 mg PO Q6HR PRN #30 tab PRN Reason: Pain No Action Pnv,Calcium 72/Iron/Folic Acid [ Plus Tablet] 1 tab PO DAILY Aspirin [Adult Low Dose Aspirin EC] 1 tab PO DAILY Heparin Sodium,Porcine [Heparin Sodium] 5,000 unit SQ Q12HR Discharge Medication List Pnv,Calcium 72/Iron/Folic Acid [ Plus Tablet] 1 tab PO DAILY 03/26/16 [History] Aspirin [Adult Low Dose Aspirin EC] 1 tab PO DAILY 02/17/22 [History] Heparin Sodium,Porcine [Heparin Sodium] 5,000 unit SQ Q12HR 03/08/22 [History] Ibuprofen [Motrin] 600 mg PO Q6HR PRN #30 tab 03/09/22 [Rx] Follow up Appointment(s)/Referral(s): Will Kenny MD [STAFF PHYSICIAN] - 04/16/22 8:45 am Patient Instructions/Handouts: Vaginal Delivery (DC) Activity/Diet/Wound Care/Special Instructions: No intercourse or anything per vagina for 6 weeks. Please call if any fever, chills, excessive vaginal bleeding, and/or abdominal pain. Discharge Disposition: HOME SELF-CARE
== END 2022-03-09 12:30 | disposition home or self-care (01) | DRG 806 ==
LOC: 4FBP 05:56
PROVIDERS: ADMIT Obstetrics & Gynecology; ATTEND Obstetrics & Gynecology
PROC: 10E0XZZ Delivery of Products of Conception, External Approach (ICD-10-PCS; principal; 2022-03-08)
DX: O99.12 Other diseases of the blood and blood-forming organs and certain disorders involving the immune mechanism complicating childbirth (principal); D68.61 Antiphospholipid syndrome; Z37.0 Single live birth; Z28.310 Unvaccinated for COVID-19; O69.81X0 Labor and delivery complicated by cord around neck, without compression, not applicable or unspecified; Z3A.39 39 weeks gestation of pregnancy; Z79.82 Long term (current) use of aspirin; Z79.899 Other long term (current) drug therapy
CPT/HCPCS: 85025; 85610; 85730; 86850; 86900; 86901

== ENCOUNTER 2023-09-05 11:11 | Day surgery (SDC) | payer BC, OTHER ==
--- NOTE | 2023-09-05 07:30 | P.GSHP ---
History of Present Illness H&P Date: 09/05/23 Chief Complaint: Ventral and umbilical hernia 28-year-old female last seen in the office last fall. Patient with complaints of a painful bulge above the umbilicus. Gradually increasing in size. On exam patient also has a small umbilical hernia. No nausea or vomiting. Past Medical History Past Medical History: No Reported History Additional Past Medical History / Comment(s): Antiphospolipid syndrome , um bilical and ventral hernia History of Any Multi-Drug Resistant Organisms: None Reported Past Surgical History: No Surgical Hx Reported Additional Past Surgical History / Comment(s): spinal for delivery Past Anesthesia/Blood Transfusion Reactions: No Reported Reaction Additional Past Anesthesia/Blood Transfusion Reaction / Comment(s): hands numb for 6 weeks after 1st epidural (unknown cause) Smoking Status: Never smoker - Past Family History Mother Family Medical History: No Reported History Father Family Medical History: No Reported History Medications and Allergies Home Medications Medication Instructions Recorded Confirmed Type Unk Multi Vitamin 1 tab PO DAILY 09/02/23 09/02/23 History Allergies Allergy/AdvReac Type Severity Reaction Status Date / Time No Known Allergies Allergy Verified 09/02/23 13:21 Surgical - Exam Physical exam: General: Well-developed, well-nourished HEENT: Normocephalic, sclerae nonicteric Abdomen: Nontender, nondistended, diastases present, incarcerated ventral hernia present, small reducible umbilical hernia present Extremities: No edema Neuro: Alert and oriented Assessment and Plan (1) Ventral hernia Narrative/Plan: 28-year-old female with umbilical and ventral hernia. Will proceed with open repair incarcerated ventral hernia with mesh and simultaneous repair umbilical hernia. Risks of bleeding, infection, recurrence, bladder and bowel injury, numbness, nerve injury, persistent diastases were discussed with the patient. The patient understands and wishes to proceed. Status: Acute Code(s): K43.9 - VENTRAL HERNIA WITHOUT OBSTRUCTION OR GANGRENE SNOMED Code(s): 061909723
[~2023-09-05 11:11] MED LIST: HYDROmorphone 0.5 MG/0.5 ML SYRINGE IVP PRN; MIDAZOLAM 2 MG/2 ML VIAL IV PRN; SCOPOLAMINE 1 MG/72 HR PATCH TRANSDERM ONE
[2023-09-05] MEDS: LACTATED RINGERS 1,000 ML IV SCH (12:16)
[2023-09-05] MEDS: ONDANSETRON 4 MG/2 ML VIAL IVP ONE (12:34)
[2023-09-05] MEDS: DEXAMETHASONE SOD PHOSPHATE 4 MG/ML 1 ML VIAL IV ONE (12:34)
[2023-09-05] MEDS: ACETAMINOPHEN TAB 500 MG TAB PO PRN (12:34)
[2023-09-05] MEDS: MIDAZOLAM 2 MG/2 ML VIAL IVP ONE (12:50)
[2023-09-05] MEDS: fentaNYL (PF) 50 MCG/ML 2 ML AMP IVP ONE (12:50)
[2023-09-05] MEDS: HEPARIN SODIUM,PORCINE 5,000 UNIT/ML 1 ML VIAL SQ PRN (12:59)
--- NOTE | 2023-09-05 13:15 | P.ANPRN ---
Procedure Note - Anesthesia - Nerve Block Performed Bilateral Rectus Abdominis Single Time Out Performed: Yes ([id number]) Date of Procedure: 09/05/23 Procedure Start Time: 12:50 Procedure Stop Time: 12:55 Location of Patient: PreOp Indication: Acute Post-Operative Pain, Requested by Surgeon Specifically requested for management of pain by DrTank: Herber Cleary Sedation Type: Sedate with meaningful contact maintained Preparation: Sterile Prep Position: Supine Catheter: None Needle Types: Pajunk Needle Gauge: 21 (x2) Ultrasound used to visualize needle placement: Yes Ultrasound used to observe medication spread: Yes Injectate: 0.5% Ropivacaine (see comment for volume) (15cc +10cc nacl pf each side) Blood Aspirated: No Pain Paresthesia on Injection Noted: No Resistance on Injection: Normal Image Stored and Saved: Yes Events: Uneventful and Well Tolerated
[2023-09-05] MEDS ORDERED: PROPOFOL 10 MG/ML 20 ML VIAL IV ONE (14:38)
[2023-09-05] MEDS ORDERED: ROCURONIUM 10 MG/ML (5 ML VIAL) IV ONE (14:38)
[2023-09-05] MEDS ORDERED: PHENYLEPHRINE 10 MG/ML VIAL ONE (14:38)
[2023-09-05] MEDS ORDERED: GLYCOPYRROLATE 0.2 MG/ML 2 ML VIAL ONE (14:38)
[2023-09-05] MEDS ORDERED: DEXAMETHASONE SOD PHOSPHATE 4 MG/ML 1 ML VIAL ONE (14:38)
[2023-09-05] MEDS ORDERED: LIDOCAINE 1% INJ 10MG/ML (20 ML MDV) ONE (14:38)
[2023-09-05] MEDS ORDERED: NEOSTIGMINE 1 MG/ML 10 ML VIAL ONE (14:38)
[2023-09-05] MEDS ORDERED: KETOROLAC 15 MG/ML 1 ML VIAL ONE (14:38)
[2023-09-05] MEDS ORDERED: ROPIVACAINE 5 MG/ML 30 ML VIAL ONE (14:38)
[2023-09-05] MEDS ORDERED: fentaNYL (PF) 50 MCG/ML 2 ML AMP ONE (14:38)
[2023-09-05] MEDS ORDERED: MIDAZOLAM 2 MG/2 ML VIAL ONE (14:38)
[2023-09-05] MEDS ORDERED: SUCCINYLCHOLINE CHLORIDE 200 MG/10 ML VIAL IV ONE (14:38)
[2023-09-05] MEDS: BUPIVACAINE (PF) 0.25% 30 ML VIAL SQ ONE ×3 (15:02→15:53)
[2023-09-05] MEDS: LACTATED RINGERS 1,000 ML IV ONE (15:36)
--- NOTE | 2023-09-05 16:20 | P.OP ---
Date of Procedure: 09/05/23 Procedure(s) Performed: PREOPERATIVE DIAGNOSIS: Incarcerated ventral hernia, umbilical hernia POSTOPERATIVE DIAGNOSIS: Same PROCEDURE: Open repair incarcerated ventral hernia and umbilical hernia SURGEON: Dr. Cleary ANESTHESIA: General OPERATIVE PROCEDURE DETAILS: Patient placed on the operating table in the supine position. Abdomen was prepped and draped in usual sterile fashion. A curvilinear incision was made above the umbilicus. This was just inferior to the patient's umbilical ring hole. Dissection through the subcutaneous tissues took place using electrocautery. The patient had a total of 4 fascial defects identified at the umbilical hernia site. The largest was about 1.5 cm. The others were about 7 to 8 mm each. These were all incorporated into 1 defect measuring 3.5 x 2.5 cm. The patient also had a small defect at the base of the umbilicus measuring only about 5 to 6 mm. A portion of the hernia sacs and pre- peroneal fat was excised. Preperitoneal space was then carefully dissected using both blunt dissection and cautery. We were able to avoid entrance into the perineal cavity. We had adequate space now for a sizable mesh. The 6.4 cm ventral ex mesh was placed in the preperitoneal space and sutured to the fascia using trans-fascial 0 Ethibond sutures. Following that the fascial defect was reapproximated horizontally using interrupted 0 Ethibond mattress sutures. The defect at the base of the umbilicus was closed using interrupted 0 Ethibond sutures. The mesh that was placed in the preperitoneal space was able to cover the umbilical hernia defect as well. The subcutaneous tissues were closed using 3-0 Vicryl sutures. The skin was closed using a running 4-0 Monocryl suture. Skin glue and sterile dressings were applied. HERNIA CHARACTERISTICS: Length: 2.5 cm Width: 3.5 cm Type: Incarcerated ventral and reducible umbilical TYPE OF MESH USED: 6.4 cm ventral X LOCATION OF MESH: [place] FIXATION: 0 Ethibond PREOPERATIVE DISCUSSION ON SMOKING CESSASTION: Yes PREOPERATIVE DISCUSSION ON MORBID OBESITY: Yes PREOPERATIVE DISCUSSION ON APPROPRIATE USE OF NARCOTIC USE: Yes PREOPERATIVE EDUCATION: Multi Modal, Smoking Cessation and Weight Loss with BMI over 35. DISPOSITION: Stable to recovery room
[2023-09-05 16:59] VITALS: TEMP 97.2
[2023-09-05 17:36] VITALS: BP 109/69; PULSE 65; RESP 18
[2023-09-05] MEDS ORDERED: ACETAMINOPHEN TAB 325 MG TAB PO SCH (18:00)
[2023-09-05] MEDS ORDERED: IBUPROFEN 600 MG TAB PO SCH (19:15)
== END 2023-09-05 17:48 | disposition home or self-care (01) ==
LOC: OR 11:11
PROVIDERS: ATTEND Surgery
DX: K43.6 Other and unspecified ventral hernia with obstruction, without gangrene (principal); K42.9 Umbilical hernia without obstruction or gangrene; G89.18 Other acute postprocedural pain
CPT/HCPCS: 49594; 81025; 64488; C1781; J2250; J0330; J1644; J1100; J2710; J0690; J2405; J2001; J3010; J2795; J1885; J2704; J2371; J0665; 88302